=== PATIENT | female | born 1955 | race Caucasian/White ===

== ENCOUNTER 2018-02-24 11:47 | Inpatient (IN) | payer MEDICAID ==
[~2018-02-24] VITALS: Ht 162.6 cm; Wt 67.6 kg
[~2018-02-24 11:47] MED LIST: ALPR0.5T8 PO; AMIT100T2 PO; FLUO-191 PO
[2018-02-24 12:32] VITALS: BP 134/69
[2018-02-24] MEDS ORDERED: HALOPERIDOL 5 MG TABLET PO PRN (12:45)
[2018-02-24] MEDS ORDERED: METF500T6 PO (13:41)
[2018-02-24] MEDS ORDERED: LISI-660 PO (13:42)
[2018-02-24] MEDS ORDERED: QUET25TA PO (13:42)
[2018-02-24 14:57] LABS: GLUCOMETER DEV NAME(LOC) BV2S 2; GLUCOSE,POINT OF CARE 147 MG/DL (70-110)
[2018-02-24] MEDS ORDERED: PNEUMOCOCCAL VACCINE POLYVALENT 0.5 ML VIAL [PPSV23] IM ONE (15:15)
[2018-02-24] MEDS: LORazepam 1 MG TABLET PO PRN (16:14)
[2018-02-24 16:43] VITALS: BP 114/62
[2018-02-24] MEDS ORDERED: MAGNESIUM HYDROXIDE SUSPENSION 30 ML UDCUP PO PRN (17:15)
[2018-02-24] MEDS: MetFORMIN HCL 500 MG TABLET PO SCH (17:25)
[2018-02-24] MEDS: OMEPRAZOLE 20 MG CAPSULE PO SCH (17:25)
[2018-02-24] MEDS: HYDROCHLOROTHIAZIDE 25 MG TABLET PO SCH (17:26)
[2018-02-24] MEDS: LISINOPRIL 5 MG TABLET PO SCH (17:38)
[2018-02-24] MEDS ORDERED: GABAPENTIN 300 MG CAPSULE PO PRN (18:15)
[2018-02-24] MEDS: ZOLPIDEM TARTRATE 10 MG TABLET PO PRN (21:02)
[2018-02-25 06:00] VITALS: BP 102/60
[2018-02-25] MEDS: MetFORMIN HCL 500 MG TABLET PO SCH ×2 (06:21→16:43)
[2018-02-25] MEDS ORDERED: INSULIN LISPRO 100 UNITS/ML SQ PRN (06:30)
[2018-02-25] MEDS ORDERED: GLUCAGON,HUMAN RECOMBINANT 1 MG VIAL IM PRN (06:30)
[2018-02-25 07:03] LABS: GLUCOMETER DEV NAME(LOC) BV2S 2; GLUCOSE,POINT OF CARE 107 MG/DL (70-110)
[2018-02-25 08:05] LABS: BASOPHILS % (AUTO) 0.8 % (0.0-2.0); EOSINOPHILS % (AUTO) 2.4 % (1.0-6.0); HEMOGLOBIN 13.5 g/dL (12.0-16.0); LYMPHOCYTES # (AUTO) 3.6 K/uL (1.0-4.8); LYMPHOCYTES % (AUTO) 43.1 % (22.0-44.0); MEAN CORPUSCULAR HEMOGLOBIN 30.7 pg (26.0-34.0); MEAN CORPUSCULAR HGB CONC 34.7 G/dL (31.0-37.0); MEAN CORPUSCULAR VOLUME 89 fL (80-100); MONOCYTES # (AUTO) 0.5 K/uL (0.1-1.0); MONOCYTES % (AUTO) 6.5 % (2.0-9.0); NEUTROPHILS % (AUTO) 47.2 % (40.0-70.0); PLATELET COUNT (AUTO) 303 K/uL (150-450); RED BLOOD CELL COUNT(AUTO) 4.41 MIL/uL (4.00-5.20); RED CELL DISTRIBUTION WIDTH 12.8 % (11.5-14.5)
[2018-02-25 08:30] LABS: HEMOGLOBIN A1C 6.6 % (4.5-6.2)
[2018-02-25] MEDS: HYDROCHLOROTHIAZIDE 25 MG TABLET PO SCH (08:42)
[2018-02-25] MEDS: NICOTINE 7 MG/24 HOUR PATCH TD SCH (08:42)
[2018-02-25] MEDS: SIMVASTATIN 40 MG TABLET PO SCH (08:43)
[2018-02-25] MEDS: DIVALPROEX SODIUM 500 MG DR TABLET PO SCH ×2 (08:43→16:43)
[2018-02-25] MEDS: OMEPRAZOLE 20 MG CAPSULE PO SCH (08:43)
[2018-02-25 08:48] VITALS: BP 107/66
[2018-02-25 08:54] LABS: ALANINE AMINOTRANSFERASE 41 U/L (12-78); ALBUMIN 3.8 g/dL (3.4-5.0); ALKALINE PHOSPHATASE 64 U/L (46-116); ANION GAP 8 mmol/L (8-16); ASPARTATE AMINOTRANSFERASE 28 U/L (15-37); BILIRUBIN,TOTAL 0.2 mg/dL (0.1-1.0); CARBON DIOXIDE 30 mmol/L (22-29); CHLORIDE 102 mmol/L (98-107); CHOL/HDL RATIO 2.6 (3.9-5.7); CHOLESTEROL 139 mg/dL (131-200); CREATININE 0.85 mg/dL (0.60-1.30); FREE T4 (FREE THYROXINE) 0.56 ng/dL (0.76-1.46); GLOMERULAR FILTR. RATE CALC > 60 mL/min (>60); GLUCOSE,RANDOM 92 mg/dL (70-110); HDL CHOLESTEROL 53 mg/dL (40-60); LDL CHOL (CALC.) 61 mg/dL (0-130); POTASSIUM 4.3 mmol/L (3.5-5.1); SODIUM SERUM 140 mmol/L (136-145); THYROID STIMULATING HORMONE 2.67 uIU/mL (0.36-3.74); TOTAL PROTEIN, SERUM 6.8 g/dL (6.4-8.2); TRIGLYCERIDES 124 mg/dL (15-150); UREA NITROGEN, BLOOD 11 mg/dL (7-18)
[2018-02-25] MEDS: LORazepam 1 MG TABLET PO PRN (09:11)
[2018-02-25] MEDS: ACETAMINOPHEN 325 MG TABLET PO PRN (09:21)
[2018-02-25] MEDS: LISINOPRIL 5 MG TABLET PO SCH (10:59)
[2018-02-25 14:29] LABS: GLUCOMETER DEV NAME(LOC) BV2S 2; GLUCOSE,POINT OF CARE 83 MG/DL (70-110)
[2018-02-25] MEDS ORDERED: ACETAMINOPHEN 325 MG TABLET PO PRN (15:30)
[2018-02-25] MEDS ORDERED: IBUPROFEN 400 MG TABLET PO PRN (15:30)
[2018-02-25 16:00] VITALS: BP 100/64
[2018-02-25] MEDS ORDERED: DOCUSATE SODIUM 100 MG CAPSULE PO PRN (17:00)
[2018-02-25 17:43] LABS: GLUCOMETER DEV NAME(LOC) BV2S 2; GLUCOSE,POINT OF CARE 141 MG/DL (70-110)
[2018-02-25] MEDS: QUEtiapine FUMARATE 25 MG TABLET PO SCH (20:21)
[2018-02-25] MEDS: ZOLPIDEM TARTRATE 10 MG TABLET PO PRN (22:03)
[2018-02-26] MEDS: MetFORMIN HCL 500 MG TABLET PO SCH ×2 (06:47→17:07)
[2018-02-26 07:12] LABS: GLUCOMETER DEV NAME(LOC) BV2S 2; GLUCOSE,POINT OF CARE 100 MG/DL (70-110)
[2018-02-26 07:18] VITALS: BP 107/61
[2018-02-26 08:26] LABS: HEMOGLOBIN A1C 6.2 % (4.5-6.2)
[2018-02-26 08:34] VITALS: BP_SYST 100; BP_SYST 110; BP_DIAS 60; BP_DIAS 63
[2018-02-26 08:37] LABS: CHOL/HDL RATIO 3.1 (3.9-5.7); THYROID STIMULATING HORMONE 3.32 uIU/mL (0.36-3.74)
[2018-02-26] MEDS: FLUoxetine HCL 20 MG CAPSULE PO SCH (08:55)
[2018-02-26] MEDS: DIVALPROEX SODIUM 500 MG DR TABLET PO SCH ×2 (08:55→17:07)
[2018-02-26] MEDS: NICOTINE 7 MG/24 HOUR PATCH TD SCH (08:55)
[2018-02-26] MEDS: LISINOPRIL 5 MG TABLET PO SCH (08:55)
[2018-02-26] MEDS: HYDROCHLOROTHIAZIDE 25 MG TABLET PO SCH (08:55)
[2018-02-26] MEDS: SIMVASTATIN 40 MG TABLET PO SCH (08:55)
[2018-02-26] MEDS: OMEPRAZOLE 20 MG CAPSULE PO SCH (08:55)
[2018-02-26] MEDS: ONDANSETRON HCL 4 MG TABLET PO PRN (14:22)
[2018-02-26 16:20] VITALS: BP 105/67
[2018-02-26] MEDS: LORazepam 1 MG TABLET PO PRN (17:07)
[2018-02-26] MEDS: ZOLPIDEM TARTRATE 10 MG TABLET PO PRN (21:59)
[2018-02-26] MEDS: QUEtiapine FUMARATE 25 MG TABLET PO SCH (21:59)
[2018-02-26] MEDS: MAGNESIUM CITRATE 300 ML ORAL SOLUTION PO PRN (22:02)
[2018-02-27] MEDS: LORazepam 1 MG TABLET PO PRN ×2 (01:22→13:21)
[2018-02-27 01:23] VITALS: BP 108/62
[2018-02-27 06:24] LABS: GLUCOMETER DEV NAME(LOC) BV2S 2; GLUCOSE,POINT OF CARE 80 MG/DL (70-110)
[2018-02-27] MEDS: MetFORMIN HCL 500 MG TABLET PO SCH ×2 (06:44→16:24)
[2018-02-27] MEDS ORDERED: BISACODYL 10 MG RECTAL RECTAL SUPPOSITORY PR ONE (08:00)
[2018-02-27 08:42] VITALS: BP 107/68
[2018-02-27] MEDS: OMEPRAZOLE 20 MG CAPSULE PO SCH (08:55)
[2018-02-27] MEDS: DIVALPROEX SODIUM 500 MG DR TABLET PO SCH ×2 (08:55→16:24)
[2018-02-27] MEDS: LISINOPRIL 5 MG TABLET PO SCH (08:55)
[2018-02-27] MEDS: HYDROCHLOROTHIAZIDE 25 MG TABLET PO SCH (08:56)
[2018-02-27] MEDS: NICOTINE 7 MG/24 HOUR PATCH TD SCH (08:56)
[2018-02-27] MEDS: FLUoxetine HCL 20 MG CAPSULE PO SCH (08:56)
[2018-02-27] MEDS: SIMVASTATIN 40 MG TABLET PO SCH (08:56)
[2018-02-27] MEDS: DOCUSATE SODIUM 100 MG CAPSULE PO SCH (08:56)
[2018-02-27 16:11] VITALS: BP 111/62
[2018-02-27 18:18] LABS: GLUCOMETER DEV NAME(LOC) BV2S 2; GLUCOSE,POINT OF CARE 91 MG/DL (70-110)
[2018-02-27] MEDS: QUEtiapine FUMARATE 25 MG TABLET PO SCH (20:28)
[2018-02-28 00:48] VITALS: BP 100/61
[2018-02-28] MEDS: ZOLPIDEM TARTRATE 10 MG TABLET PO PRN ×2 (01:04→20:25)
[2018-02-28 06:23] LABS: GLUCOMETER DEV NAME(LOC) BV2S 2; GLUCOSE,POINT OF CARE 93 MG/DL (70-110)
[2018-02-28] MEDS: MetFORMIN HCL 500 MG TABLET PO SCH ×2 (07:01→16:47)
[2018-02-28 07:33] LABS: GLUCOMETER DEV NAME(LOC) BV2S 2; GLUCOSE,POINT OF CARE 87 MG/DL (70-110)
[2018-02-28 08:00] VITALS: BP 115/65
[2018-02-28] MEDS: LISINOPRIL 5 MG TABLET PO SCH (08:47)
[2018-02-28] MEDS: SIMVASTATIN 40 MG TABLET PO SCH (08:47)
[2018-02-28] MEDS: DIVALPROEX SODIUM 500 MG DR TABLET PO SCH ×2 (08:47→16:09)
[2018-02-28] MEDS: FLUoxetine HCL 20 MG CAPSULE PO SCH (08:48)
[2018-02-28] MEDS: NICOTINE 7 MG/24 HOUR PATCH TD SCH (08:48)
[2018-02-28] MEDS: HYDROCHLOROTHIAZIDE 25 MG TABLET PO SCH (08:48)
[2018-02-28] MEDS: OMEPRAZOLE 20 MG CAPSULE PO SCH (08:48)
[2018-02-28] MEDS: DOCUSATE SODIUM 100 MG CAPSULE PO SCH (08:48)
[2018-02-28] MEDS: ACETAMINOPHEN 325 MG TABLET PO PRN (08:49)
[2018-02-28] MEDS: ONDANSETRON HCL 4 MG TABLET PO PRN ×2 (09:56→18:14)
[2018-02-28 12:45] VITALS: BP 113/61
[2018-02-28] MEDS: LORazepam 1 MG TABLET PO PRN ×2 (12:48→16:48)
[2018-02-28 16:18] VITALS: BP 120/66
[2018-02-28 17:23] LABS: GLUCOMETER DEV NAME(LOC) BV2S 2; GLUCOSE,POINT OF CARE 128 MG/DL (70-110)
[2018-02-28] MEDS: QUEtiapine FUMARATE 25 MG TABLET PO SCH (20:25)
[2018-03-01 03:25] VITALS: BP 102/60
[2018-03-01] MEDS: LORazepam 1 MG TABLET PO PRN ×2 (04:15→12:08)
[2018-03-01] MEDS: MetFORMIN HCL 500 MG TABLET PO SCH ×2 (06:57→16:58)
[2018-03-01 07:08] LABS: GLUCOMETER DEV NAME(LOC) BV2S 2; GLUCOSE,POINT OF CARE 87 MG/DL (70-110)
[2018-03-01] MEDS ORDERED: DSSL PO (07:51)
[2018-03-01] MEDS ORDERED: OMEP20 PO (07:51)
[2018-03-01] MEDS ORDERED: HYDR25TA PO (07:51)
[2018-03-01] MEDS ORDERED: QUET50TA PO (07:53)
[2018-03-01] MEDS ORDERED: SIMV40TA2 PO (07:53)
[2018-03-01] MEDS ORDERED: DIVA250T4 PO (07:53)
[2018-03-01 08:27] VITALS: BP 114/64
[2018-03-01] MEDS: OMEPRAZOLE 20 MG CAPSULE PO SCH (10:31)
[2018-03-01] MEDS: FLUoxetine HCL 20 MG CAPSULE PO SCH (10:33)
[2018-03-01] MEDS: DIVALPROEX SODIUM 500 MG DR TABLET PO SCH ×2 (10:33→16:58)
[2018-03-01] MEDS: DOCUSATE SODIUM 100 MG CAPSULE PO SCH (10:33)
[2018-03-01] MEDS: LISINOPRIL 5 MG TABLET PO SCH (10:33)
[2018-03-01] MEDS: SIMVASTATIN 40 MG TABLET PO SCH (10:33)
[2018-03-01] MEDS: HYDROCHLOROTHIAZIDE 25 MG TABLET PO SCH (10:33)
[2018-03-01] MEDS: NICOTINE 7 MG/24 HOUR PATCH TD SCH (10:42)
[2018-03-01] MEDS ORDERED: MAG HYDROX/AL HYDROX/SIMETH ES 30 ML SUSPENSION UDCUP PO PRN (13:00)
[2018-03-01 16:38] VITALS: BP 107/61
[2018-03-01 16:54] LABS: GLUCOMETER DEV NAME(LOC) BV2S 2; GLUCOSE,POINT OF CARE 102 MG/DL (70-110)
[2018-03-01] MEDS: QUEtiapine FUMARATE 25 MG TABLET PO SCH (20:19)
[2018-03-01 21:09] VITALS: BP 110/64
[2018-03-01] MEDS: ACETAMINOPHEN 325 MG TABLET PO PRN (21:09)
[2018-03-01] MEDS: ZOLPIDEM TARTRATE 10 MG TABLET PO PRN (21:09)
[2018-03-02 04:28] VITALS: BP 110/68
[2018-03-02] MEDS: MetFORMIN HCL 500 MG TABLET PO SCH (07:00)
[2018-03-02 07:09] LABS: GLUCOMETER DEV NAME(LOC) BV2S 2; GLUCOSE,POINT OF CARE 86 MG/DL (70-110)
[2018-03-02 08:41] VITALS: BP 108/69
[2018-03-02] MEDS: DIVALPROEX SODIUM 500 MG DR TABLET PO SCH ×2 (08:48→12:56)
[2018-03-02] MEDS: NICOTINE 7 MG/24 HOUR PATCH TD SCH (08:48)
[2018-03-02] MEDS: OMEPRAZOLE 20 MG CAPSULE PO SCH (08:48)
[2018-03-02] MEDS: FLUoxetine HCL 20 MG CAPSULE PO SCH (08:48)
[2018-03-02] MEDS: DOCUSATE SODIUM 100 MG CAPSULE PO SCH (08:48)
[2018-03-02] MEDS: LISINOPRIL 5 MG TABLET PO SCH (08:48)
[2018-03-02] MEDS: HYDROCHLOROTHIAZIDE 25 MG TABLET PO SCH (08:49)
[2018-03-02] MEDS: SIMVASTATIN 40 MG TABLET PO SCH (08:49)
[2018-03-02] MEDS ORDERED: DSS100 PO (08:51)
== END 2018-03-02 14:44 | disposition home or self-care (01) | DRG 750 ==
LOC: B2S 12:47
PROVIDERS: ADMIT Psychiatry & Neurology Psychiatry; ATTEND Psychiatry & Neurology Psychiatry
DX: F25.9 Schizoaffective disorder, unspecified (principal); E11.9 Type 2 diabetes mellitus without complications; I10 Essential (primary) hypertension; G56.00 Carpal tunnel syndrome, unspecified upper limb; F17.200 Nicotine dependence, unspecified, uncomplicated; E78.5 Hyperlipidemia, unspecified; Z59.0 Homelessness; Z83.3 Family history of diabetes mellitus; Z82.49 Family history of ischemic heart disease and other diseases of the circulatory system
CPT/HCPCS: 83036; 84439; 84443; Q0162

== ENCOUNTER 2018-11-03 11:35 | Emergency (ER) | payer MEDICAID, OTHER ==
[~2018-11-03] VITALS: Ht 154.9 cm; Wt 66.8 kg
[~2018-11-03 11:35] MED LIST changes: -ALPR0.5T8 PO; -AMIT100T2 PO; +DIVA250T4 PO; +DSS100 PO; +HYDR25TA PO; +LISI-660 PO; +METF-960 PO; +OMEP20 PO; +QUET50TA PO; +SIMV40TA2 PO
[2018-11-03 13:22] LABS: AMPHET/METH SCREEN,URINE NEGATIVE (NEGATIVE); BARBITURATE SCREEN, URINE NEGATIVE (NEGATIVE); BENZODIAZEPINES SCREEN,URINE POSITIVE (NEGATIVE); CANNABINOID SCREEN,URINE NEGATIVE (NEGATIVE); COCAINE SCREEN,URINE NEGATIVE (NEGATIVE); METHADONE SCREEN, URINE NEGATIVE (NEGATIVE); OPIATE SCREEN,URINE NEGATIVE (NEGATIVE); PHENCYCLIDINE SCREEN,URINE NEGATIVE (NEGATIVE)
[2018-11-03 13:27] LABS: BASOPHILS % (AUTO) 0.6 % (0.0-2.0); EOSINOPHILS % (AUTO) 0.8 % (1.0-6.0); HEMATOCRIT 41.9 % (36-46); HEMOGLOBIN 13.8 g/dL (12.0-16.0); LYMPHOCYTES # (AUTO) 2.2 K/uL (1.0-4.8); LYMPHOCYTES % (AUTO) 27.1 % (22.0-44.0); MEAN CORPUSCULAR HEMOGLOBIN 29.6 pg (26.0-34.0); MEAN CORPUSCULAR HGB CONC 32.8 G/dL (31.0-37.0); MEAN CORPUSCULAR VOLUME 90 fL (80-100); MONOCYTES # (AUTO) 0.4 K/uL (0.1-1.0); MONOCYTES % (AUTO) 5.2 % (2.0-9.0); NEUTROPHILS # (AUTO) 5.4 K/uL (1.8-7.7); NEUTROPHILS % (AUTO) 66.3 % (40.0-70.0); PLATELET COUNT (AUTO) 304 K/uL (150-450); RED BLOOD CELL COUNT(AUTO) 4.65 MIL/uL (4.00-5.20); RED CELL DISTRIBUTION WIDTH 13.1 % (11.5-14.5)
[2018-11-03 13:36] LABS: ANION GAP 8 mmol/L (8-16); CALCIUM, TOTAL 9.4 mg/dL (8.8-10.5); CARBON DIOXIDE 29 mmol/L (22-29); CHLORIDE 104 mmol/L (98-107); CREATININE 0.78 mg/dL (0.60-1.30); GLOMERULAR FILTR. RATE CALC > 60 mL/min (>60); GLUCOSE,RANDOM 137 mg/dL (70-110); POTASSIUM 4.5 mmol/L (3.5-5.1); SODIUM SERUM 141 mmol/L (136-145); UREA NITROGEN, BLOOD 9 mg/dL (7-18)
[2018-11-03 13:42] LABS: ALANINE AMINOTRANSFERASE 34 U/L (12-78); ALBUMIN 3.8 g/dL (3.4-5.0); ALKALINE PHOSPHATASE 76 U/L (46-116); ASPARTATE AMINOTRANSFERASE 27 U/L (15-37); BILIRUBIN,TOTAL 0.3 mg/dL (0.1-1.0); TOTAL PROTEIN, SERUM 7.8 g/dL (6.4-8.2); VALPROIC ACID < 3 mcg/mL (50-100)
[2018-11-03 14:10] VITALS: BP 130/90
[2018-11-03] MEDS ORDERED: MAG HYDROX/AL HYDROX/SIMETH ES 30 ML SUSPENSION UDCUP PO ONE (14:15)
[2018-11-03] MEDS ORDERED: LORazepam 2 MG TABLET PO ONE (14:15)
[2018-11-03] MEDS ORDERED: ACETAMINOPHEN 500 MG TABLET PO ONE (14:15)
[2018-11-03] MEDS ORDERED: DIVA-78 PO (14:18)
== END 2018-11-03 15:06 | disposition home or self-care (01) ==
LOC: EMS 11:35
DX: F41.9 Anxiety disorder, unspecified (principal); R45.851 Suicidal ideations; K29.70 Gastritis, unspecified, without bleeding; I10 Essential (primary) hypertension; E11.9 Type 2 diabetes mellitus without complications; E78.00 Pure hypercholesterolemia, unspecified; F17.210 Nicotine dependence, cigarettes, uncomplicated
CPT/HCPCS: 36415; 80053; 80164; 80307; 82962; 85025; 99285; 99406; G0480